=== PATIENT | female | born 2000 | race African-American/Black ===

== ENCOUNTER 2023-04-24 03:49 | Emergency (ER) | payer BC, SELFPAY ==
[2023-04-24 04:00] VITALS: BP 120/83; BP 124/80; PULSE 100; PULSE 110; RESP 16; TEMP 36.7; O2SAT 98; BMI 37.5
[2023-04-24 04:17] LABS: IDNOW Serial# 08D9AD1C; Strep A Nucleic Acid Negative (Negative)
[2023-04-24] MEDS: Benzonatate 100 MG CAPSULE 200 MG PO (04:22)
[2023-04-24] MEDS: Acetaminophen 325 MG TABLET 975 MG PO (04:22)
[2023-04-24 04:46] LABS: Influenza A PCR NEGATIVE (Negative); Influenza B PCR NEGATIVE (Negative); Resp Syncy Virus RNA Qual PCR NEGATIVE (Negative); SARS COV2 PCR INHOUSE NEGATIVE (Negative)
--- NOTE | 2023-04-24 05:05 | ED.URI ---
HPI - URI/Sore Throat General Chief Complaint: Upper Respiratory Symptoms Stated Complaint: flu like symptoms 2 days and sore throat Time Seen by Provider: 04/24/23 04:48 Source: patient Mode of arrival: EMS Limitations: no limitations History of Present Illness HPI Narrative: 22-year-old female, [employer] student with a history of depression who presents emergency department for evaluation of sore throat. The patient states she tested positive for COVID-19 on 04/20/2019 4-4 days prior she states that initially she had fever, rhinorrhea, cough, shortness of breath, myalgias and arthralgias but these symptoms have improved. She also developed bilateral conjunctivitis. She states that yesterday she started to have a sore throat and a raspy voice which got significantly worse. She states that talking, eating and even breathing hurts her throat and she was concerned about the severity the pain so she came to the emergency department for evaluation. She has been taking Tylenol with some relief of her pain. Related Data Previous Rx's Medication Instructions Recorded benzonatate 200 mg capsule 200 mg PO TID PRN cough #15 caps 04/24/23 erythromycin 5 mg/gram (0.5 %) eye 0.5 inch ophthalmic (eye) TID 7 04/24/23 ointment days #7 grams Allergies Allergy/AdvReac Type Severity Reaction Status Date / Time No Known Allergies Allergy Verified 04/24/23 04:21 Review of Systems Review of Systems: Yes all other systems are reviewed and are negative [facility] Past Medical History [facility] Narrative: Social history: She is a student at [employer]. She denies tobacco, alcohol and drug use. Social History Social History Smoked in Last 30 Days: No Use of substances other than those prescribed or required for medical reasons: No Advance Directives: No Advance Directives Information Provided: No Patient : No Physical Exam Vital Signs: Vital Signs: Last Vital Signs Temp 98.0 F 04/24/23 04:00 Pulse 110 H 04/24/23 04:00 Resp 16 04/24/23 04:00 BP 120/83 04/24/23 04:00 Pulse Ox 98 04/24/23 04:00 O2 Del Method Room Air 04/24/23 04:00 BMI result Body Mass Index 37.5 Vital signs revealed an elevated heart rate of 110 Exam: General: Awake, alert in no distress, elevated BMI 37.5 Head: Normocephalic, atraumatic EENT: PERRL, Lids normal, sclera normal, conjunctiva erythematous consistent with conjunctivitis, nose normal , ears normal, throat without erythema or exudates Neck: Supple, no adenopathy Lung: breath sounds symmetric, no wheezing, rales or rhonchi Chest: symmetric movement, nontender Heart: regular rate and rhythm, normal S1, S2 no murmurs or rubs Abdomen: soft, non-tender, nondistended, normal bowel sounds Back: no vertebral tenderness, no CVAT Extremities: no deformities, moves all extremities symmetrically Psych: Pleasant, cooperative Medications Administered Discontinued Medications Generic Name Dose Route Start Last Admin Trade Name Freq PRN Reason Stop Dose Admin Acetaminophen 975 mg 04/24/23 04:12 04/24/23 04:22 Acetaminophen 325 Mg Tablet PO 04/24/23 04:13 975 mg ONCE ONE Administration Benzonatate 200 mg 04/24/23 04:12 04/24/23 04:22 Benzonatate 100 Mg Capsule PO 04/24/23 04:13 200 mg ONCE ONE Administration Medical Decision Making Medical Decision Making MDM Narrative: 22-year-old female who is a student at [employer] with a history of depression who presents emergency department who tested positive for COVID-19 4 days prior, her symptoms were improving except she developed a sore throat yesterday which got progressively worse. Patient's physical examination did reveal bilateral conjunctivitis, throat exam did not reveal any significant abnormalities. Vital signs did reveal an elevated heart rate. Differential diagnosis: ?Includes but is not limited to bacterial conjunctivitis, viral conjunctivitis, strep throat, viral pharyngitis, COVID-19 infection, influenza, RSV Following evaluation was ordered: COVID-19, RSV, influenza, rapid strep Patient was initially treated with the following: Tessalon Perles 200 mg orally, Tylenol 975 mg orally and dexamethasone 10 mg orally Course: 05:19 My interpretation patient's laboratory evaluation is as follows: COVID-19, influenza and RSV were negative. Rapid strep was negative. The patient did have 1 positive COVID-19 infection as an outpatient therefore she does have COVID-19 infection despite having the negative COVID-19 today. Patient's rapid strep was negative, her sore throat is most likely caused by the COVID-19 infection. The patient was given dexamethasone 10 mg orally to try to help with her pain. She was advised to continue taking Tylenol and to take ibuprofen as well. She was treated with erythromycin ophthalmologic ointment to both eyes, she is to use this 3 times a day for 7 days in both eyes. She was given printed and verbal instructions and discharged home Lab Data MDM Lab Attestation statement: I reviewed the patient's lab results. Labs: Lab Results 04/24/23 Range/Units 04:03 Influenza Type A (PCR) NEGATIVE (Negative) Influenza Type B (PCR) NEGATIVE (Negative) RSV RNA Qual (PCR) NEGATIVE (Negative) SARS-CoV-2 RNA (RT-PCR) NEGATIVE (Negative) S. pyogenes GrpA RICHARD Negative (Negative) Prescription Management I considered prescription management with: Antibiotic and Other (Cough suppressant) Chronic Conditions Patient?s care impacted by: Other (Depression) Discharge Plan Discharge Clinical Impression: COVID-19 Upper respiratory infection Qualifiers: URI type: unspecified viral URI Qualified Code(s): J06.9 - Acute upper respiratory infection, unspecified Pharyngitis Qualifiers: Pharyngitis/tonsillitis etiology: other specified organisms Qualified Code(s): J02.8 - Acute pharyngitis due to other specified organisms Conjunctivitis Qualifiers: Conjunctivitis type: acute Laterality: bilateral Patient Disposition: Home, Self-Care Instructions: Pharyngitis (ED) Additional Instructions: Your influenza and RSV tests were negative. Your rapid strep test was negative. Your COVID test was negative here in the emergency department however if you have one test that is positive COVID, then you do have a COVID infection. Your conjunctivitis is most likely a viral infection however sometimes it can be caused by a bacteria therefore I am going to treat your conjunctivitis with erythromycin ointment, apply 1 strip to your lower eyelid of both eyes 3 times a day for 7 days Your sore throat is most likely caused by the COVID infection, you were given dexamethasone 10 mg orally, this is an anti inflammatory steroid and should help with your pain. The medication lasts for 3 days in your system. Take ibuprofen 200 mg pills, 2 pills every 6 hours as needed for pain or fever. Take Tylenol (acetaminophen) 500 mg pills, 2 pills every 6 hours as needed for pain or fever. Follow-up with your doctor in 2 days. Please return to the emergency department if your symptoms get worse or if you develop any symptoms that are concerning to you. Prescriptions: New erythromycin 5 mg/gram (0.5 %) ointment 0.5 inch ophthalmic (eye) TID 7 Days Qty: 7 0RF Rx Instructions: Apply to both eyes 3 times a day for 7 days benzonatate 200 mg capsule 200 mg PO TID PRN (Reason: cough) Qty: 15 0RF
[2023-04-24] MEDS: Erythromycin Base 0.5% Oph Oin 1 GM TUBE 1 CM EYE-BOTH (05:12)
[2023-04-24] MEDS: dexAMETHasone 2 MG TABLET 10 MG PO (05:12)
== END 2023-04-24 05:23 | disposition home or self-care (01) ==
PROVIDERS: Emergency Provider Emergency Medicine Emergency Medical Services
DX: U07.1 COVID-19 (principal); J06.9 Acute upper respiratory infection, unspecified; J02.8 Acute pharyngitis due to other specified organisms; H10.9 Unspecified conjunctivitis
CPT/HCPCS: 0241U; 87651; 99283; 99284; J8540